=== PATIENT | female | born 1950 | race African-American/Black ===

== ENCOUNTER → 2018-03-28 | Outpatient (CLI) | payer MEDICARE ==
--- NOTE | 2018-03-29 11:08 | SLEEP ---
DATE OF STUDY: 03/28/2018 ATTENDING PHYSICIAN: Dr. Ginette Chowdhury. The patient is 67 years old who weighs 276 pounds with a BMI of 51. The patient's [place] score was 20, suggesting severe subjective hypersomnia. The patient underwent a split night study at [facility]. During the night split study, the patient spent 448 minutes in bed and slept for 421 minutes with a sleep efficiency of 94%. Sleep latency was 2 minutes with a REM latency of 154 minutes. Overall, sleep architecture showed normal stage 1 and stage 2 sleep, increased slow wave and normal REM sleep. During the initial diagnostic portion of the study, the patient slept for 82 minutes. During that time, the patient had 82 obstructive apneas, 4 mixed and no central apneas and 62 hypopneas. The patient's apnea hypopnea index was 113 per hour. The patient did not have any significant supine sleep during diagnostic portion or REM sleep. EKG monitoring revealed normal sinus rhythm, average heart rate of 76 beats per minute, occasional PACs and rare PVCs seen. No sustained arrhythmias observed. Nocturnal oximetry study revealed a mean oxygen saturation of 89% with lowest of 79%. 51% of the time oxygen saturation remained between 80% and 89%. No PLMS observed. The patient met the criteria for CPAP initiation. She was started at 5 cm water and titrated up to 18 cm water. At the final pressure, the patient slept for 46 minutes. The patient had supine sleep throughout and a long REM period was observed. The patient's AHI was reduced to 1 per hour and oxygen saturations remained above 90%. The patient used a large size nasal mask. IMPRESSION: 1. Severe sleep apnea-hypopnea syndrome at an AHI of 113 per hour. 2. Nocturnal hypoxia which was severe, but resolved with CPAP. 3. No clinically significant PLMS. RECOMMENDATIONS: 1. CPAP at 18 cm water completely eliminated the patient's sleep apnea, should be used on a nightly basis. 2. Follow up in 4-6 weeks to assess compliance with CPAP and to document clinical improvement. 3. Weight loss is strongly advised. 4. Avoid [employer] depressants. 5. Caution regarding driving until symptoms of sleep apnea resolve with the use of CPAP. JOSE JONES MD DR: RUTHIE/kenneth JOB#: [id number] / [id number] GINETTE Boles MD
== END | disposition home or self-care (01) ==
LOC: RT 18:19
PROVIDERS: ATTEND Pediatrics
DX: G47.33 Obstructive sleep apnea (adult) (pediatric) (principal); G47.34 Idiopathic sleep related nonobstructive alveolar hypoventilation
CPT/HCPCS: 95810

== ENCOUNTER 2018-04-11 09:30 | Day surgery (SDC) | payer MEDICARE ==
[~2018-04-11 09:30] MED LIST: CIPROFLOXACIN 0.3% OPHTH SOLUTION 5ML BOTTLE. OD ONE; HYDROmorphone 2 MG/ML VIAL IV PRN; IV RINGERS,LACTATED 1000ML 1,000 ML IV SCH; LIDOCAINE 1% PF 2 ML VIAL. ID PRN; LIDOCAINE 2% JELLY 6ML IN APPLICATOR. MM SCH; MORPHINE SULFATE 2 MG/ML VIAL. IV PRN; ONDANSETRON PF 4 MG/2 ML VIAL. IV PRN; PROCHLORPERAZINE 10 MG/2 ML VIAL. IV PRN; PROPARACAINE 0.5% OPHTH SOLUTION 15ML BOTTLE. OD ONE; fentaNYL PF VIAL 100 MCG/2 ML VIAL IV PRN
[2018-04-11] MEDS ORDERED: LOSA100T7 PO (09:49)
[2018-04-11] MEDS ORDERED: [UNRECOGNIZED DRUG - OTHER] (09:52)
[2018-04-11] MEDS ORDERED: APIX5TAB PO (09:52)
[2018-04-11] MEDS ORDERED: IBUP-1060 PO (09:52)
[2018-04-11] MEDS ORDERED: POTA20TA82 PO (09:53)
[2018-04-11] MEDS ORDERED: PROAIR HFA8.5 GM INH (09:54)
[2018-04-11] MEDS ORDERED: PROM118S5 PO (09:54)
[2018-04-11] MEDS ORDERED: BUDE10.2 IH (09:54)
[2018-04-11] MEDS ORDERED: TRAM50TA PO (09:55)
[2018-04-11] MEDS ORDERED: AMLO5TAB7 PO (09:56)
[2018-04-11] MEDS ORDERED: LEVO200T5 PO (09:56)
[2018-04-11] MEDS: CYCLOPENTOLATE 1% OPTH SOLUTION 2ML BOTTLE. OD SCH ×3 (10:27→10:44)
[2018-04-11] MEDS: PHENYLEPHRINE 10% OPHTH SOLUTION 5ML BOTTLE. OD SCH ×3 (10:28→10:45)
[2018-04-11] MEDS ORDERED: LEVIMIR SUBCUT (10:35)
[2018-04-11] MEDS ORDERED: INSU100C4 SQ (10:36)
[2018-04-11] MEDS ORDERED: CHONDROITIN-SOD-HYALURONATE 0.5 ML DISP.SYRIN. ONE (10:43)
[2018-04-11] MEDS ORDERED: NEO/POLYMYX/DEXAMETH OPHTH OINTMENT 3.5GM TUBE. ONE (10:43)
[2018-04-11] MEDS ORDERED: CHONDROIT-SOD-HYALURONATE KIT. ONE (10:43)
[2018-04-11] MEDS ORDERED: BALANCED SALT IRRIG OPHTH SOLN 15 ML BOTTLE. ONE (10:43)
[2018-04-11] MEDS ORDERED: LIDOCAINE 1% PF 2 ML VIAL. ONE (10:43)
[2018-04-11 12:30] VITALS: BP 145/74
--- NOTE | 2018-04-11 13:44 | OP ---
DATE OF SURGERY: 04/11/2018 PREOPERATIVE DIAGNOSIS: Significant nuclear and cortical cataract of the right eye. POSTOPERATIVE DIAGNOSIS: Significant nuclear and cortical cataract of the right eye. PROCEDURE: Phacoemulsification with posterior chamber lens implant, right eye. ANESTHESIA: Local with MAC. DESCRIPTION OF PROCEDURE: The patient's dilating and anesthetic drops were given on the outpatient department and the [place] balloon cuff used for about 15 minutes. The patient was brought to the operating room, positioned on the table and the right eye was prepped and draped in the usual sterile manner for an intraocular procedure. A lid speculum was placed between the eyelids on the right side and the eye was first observed. It was noted that there was a medium dilated pupil. A paracentesis was made in superior temporally and an injection of fentanyl-lidocaine made into the anterior chamber. This was followed by injection of viscoelastic and then the 2.4 mm temporal incision made with a steel blade. A capsulorrhexis was made about the dilated pupillary border and the lens nucleus hydrodissected. The lens nucleus was phacoemulsified with the phaco handpiece and the cortical material then aspirated with the I/A handpiece. Provisc was then used to insufflate the bag and form the anterior chamber and a posterior chamber lens placed into the bag without difficulty. The Provisc was aspirated with the I/A handpiece and the anterior chamber reformed and the wound hydrated. The wound was checked for leaks and there were none. The speculum and drape were removed and Maxitrol ointment instilled in the conjunctival sac and the eye was shielded. The patient was taken to the recovery room in satisfactory condition. There were no complications. I will see the patient tomorrow in my office. K GEORGE WILKINSON MD DR: SHUBHAM/kenneth JOB#: [id number] / [id number]
== END 2018-04-11 13:25 | disposition home or self-care (01) ==
LOC: SURG 09:30
PROVIDERS: ATTEND Ophthalmology
DX: H25.11 Age-related nuclear cataract, right eye (principal); I10 Essential (primary) hypertension; E03.9 Hypothyroidism, unspecified; E11.9 Type 2 diabetes mellitus without complications; Z79.899 Other long term (current) drug therapy; Z88.0 Allergy status to penicillin; Z88.2 Allergy status to sulfonamides; Z79.84 Long term (current) use of oral hypoglycemic drugs; Z98.42 Cataract extraction status, left eye; Z96.1 Presence of intraocular lens
CPT/HCPCS: 66984; 82962; C1780; J0171; A4461

== ENCOUNTER 2018-04-21 10:10 | Day surgery (SDC) | payer MEDICARE ==
[~2018-04-21 10:10] MED LIST changes: +AMLO5TAB7 PO; +APIX5TAB PO; +BUDE10.2 IH; -CIPROFLOXACIN 0.3% OPHTH SOLUTION 5ML BOTTLE. OD ONE; -HYDROmorphone 2 MG/ML VIAL IV PRN; +IBUP-1060 PO; +INSU100C4 SQ; -IV RINGERS,LACTATED 1000ML 1,000 ML IV SCH; +LEVIMIR SUBCUT; +LEVO200T5 PO; -LIDOCAINE 1% PF 2 ML VIAL. ID PRN; -LIDOCAINE 2% JELLY 6ML IN APPLICATOR. MM SCH; +LOSA100T14 PO; -MORPHINE SULFATE 2 MG/ML VIAL. IV PRN; -ONDANSETRON PF 4 MG/2 ML VIAL. IV PRN; +POTA20TA82 PO; +PROAIR HFA8.5 GM INH; -PROCHLORPERAZINE 10 MG/2 ML VIAL. IV PRN; +PROM118S5 PO; -PROPARACAINE 0.5% OPHTH SOLUTION 15ML BOTTLE. OD ONE; +TRAM50TA PO; +[UNRECOGNIZED DRUG - OTHER]; -fentaNYL PF VIAL 100 MCG/2 ML VIAL IV PRN
[2018-04-21] MEDS ORDERED: IV RINGERS,LACTATED 1000ML 1,000 ML IV SCH (11:00)
[2018-04-21] MEDS ORDERED: LIDOCAINE 1% PF 2 ML VIAL. ONE (11:27)
[2018-04-21] MEDS ORDERED: BALANCED SALT IRRIG OPHTH SOLN 15 ML BOTTLE. ONE (11:27)
[2018-04-21] MEDS ORDERED: CHONDROIT-SOD-HYALURONATE KIT. ONE (11:27)
[2018-04-21] MEDS ORDERED: CHONDROITIN-SOD-HYALURONATE 0.5 ML DISP.SYRIN. ONE (11:27)
[2018-04-21] MEDS ORDERED: NEO/POLYMYX/DEXAMETH OPHTH OINTMENT 3.5GM TUBE. ONE (11:27)
[2018-04-21] MEDS: PHENYLEPHRINE 10% OPHTH SOLUTION 5ML BOTTLE. OS SCH ×3 (11:46→11:58)
[2018-04-21] MEDS: CYCLOPENTOLATE 1% OPTH SOLUTION 2ML BOTTLE. OS SCH ×3 (11:46→11:58)
[2018-04-21] MEDS ORDERED: MIDAZOLAM HCL/PF 2 MG/2 ML VIAL. ONE (12:34)
[2018-04-21] MEDS ORDERED: TRYPAN BLUE 0.06% INTRAOCULAR 0.5 ML SYRINGE. OS ONE (13:02)
[2018-04-21 13:25] VITALS: BP 184/87
--- NOTE | 2018-04-21 14:36 | OP ---
DATE OF SURGERY: 04/21/2018 PREOPERATIVE DIAGNOSIS: Significant nuclear and cortical spoking cataract of the left eye. POSTOPERATIVE DIAGNOSIS: Significant nuclear and cortical spoking cataract of the left eye. PROCEDURE: Phacoemulsification with posterior chamber lens implant with use of VisionBlue, left eye. ANESTHESIA: Topical with MAC. DESCRIPTION OF PROCEDURE: The patient's topical and anesthetic drops were applied in the outpatient area and the [place] balloon cuff used for about 10-15 minutes. The patient was then brought to the operating room and positioned on the table and the left eye was prepped and draped in the usual sterile manner for an intraocular procedure. A lid speculum was placed between the eyelids and the operating microscope brought into position. The eye was first observed. There was average pupillary dilation with significant nuclear and cortical changes. I felt capsulorrhexis would be difficult with the cortical changes, so I decided to use VisionBlue. A paracentesis incision was made inferior temporally and Phenylid was injected into the anterior chamber. This was followed by an injection of air in a Viscoat plug and then VisionBlue was infiltrated over the anterior capsule for staining. The air was displaced with Viscoat and the primary 2.4-mm incision was made temporally. A bent needle and forceps were used to make a capsulorrhexis and this was rather easy with the staining. The lens nucleus was hydrodissected and the nucleus then phacoemulsified using the phaco handpiece. The anterior chamber was formed and the bag insufflated with Provisc. A posterior chamber lens placed into the bag without difficulty. The viscoelastic was aspirated with the I/A handpiece and the eye was pressurized. The wound was checked for leaks and there were none. The eye looked good at the end of the case and the speculum and drape were then removed. Maxitrol ointment was instilled in the conjunctival sac and the eye was shielded. The patient was taken to recovery room in satisfactory condition. I will see her in 3 days in my office. I will make phone contact with her tomorrow to make sure she is doing well. K GEORGE WILKINSON MD DR: SHUBHAM/kenneth JOB#: [id number] / [id number]
[2018-04-22] MEDS ORDERED: PROPARACAINE 0.5% OPHTH SOLUTION 15ML BOTTLE. OS ONE (06:00)
[2018-04-22] MEDS ORDERED: LIDOCAINE 2% JELLY 6ML IN APPLICATOR. MM SCH (06:00)
[2018-04-22] MEDS ORDERED: CIPROFLOXACIN 0.3% OPHTH SOLUTION 5ML BOTTLE. OS ONE (06:15)
== END 2018-04-21 14:35 | disposition home or self-care (01) ==
LOC: SURG 10:10
PROVIDERS: ATTEND Ophthalmology
DX: E11.36 Type 2 diabetes mellitus with diabetic cataract (principal); H25.812 Combined forms of age-related cataract, left eye; I10 Essential (primary) hypertension; E03.9 Hypothyroidism, unspecified; Z88.0 Allergy status to penicillin; Z88.2 Allergy status to sulfonamides; Z79.899 Other long term (current) drug therapy; Z98.41 Cataract extraction status, right eye; Z96.1 Presence of intraocular lens; Z79.84 Long term (current) use of oral hypoglycemic drugs
CPT/HCPCS: 66982; 82962; C1780; J0171; J2250; A4461

== ENCOUNTER → 2020-04-28 | Outpatient (CLI) | payer MEDICARE ==
[~2020-04-28] MED LIST changes: +ALBU2.5V8 INH; +AMLO-186 PO; -AMLO5TAB7 PO; +POTA20TA4 PO; -POTA20TA82 PO; -PROAIR HFA8.5 GM INH
--- NOTE | 2020-04-28 16:45 | RAD ---
Bilateral lower extremity arterial Doppler: Reason for examination: Reason for examination: Nonpalpable pedal pulses. The lower extremity arterial systems were evaluated from the common femoral arteries distally to the posterior tibial and dorsalis pedis arteries with grayscale imaging, color-flow imaging and spectral analysis. Examination was compromised by patient's morbid obesity and very large legs. There is limited visualization of the vascular structures due to morbid obesity. The right common femoral artery shows a triphasic waveform. The deep femoral artery shows a biphasic waveform. The proximal right superficial femoral artery shows a triphasic waveform. The right superficial femoral artery was not visualized from the mid to distal segment. The right popliteal artery, posterior tibial artery, peroneal artery and anterior tibial and dorsalis pedis artery appear to show biphasic waveforms. The left common femoral artery shows a triphasic waveform. The deep femoral artery shows a biphasic waveform. The left superficial femoral artery, popliteal artery, posterior tibial artery, peroneal artery, anterior tibial artery and dorsalis pedis arteries show biphasic waveforms. Flow velocities are as follows (in centimeters per second): Right Left Common femoral artery 156 188 Deep femoral artery 149 115 Superficial femoral artery proximal 175 146 Superficial femoral artery mid nonvisualized 130 Superficial femoral artery distal nonvisualized 141 Popliteal artery 103 144 Posterior tibial artery proximal 86 98 Posterior tibial artery distally 180 77 Peroneal artery 99 98 Anterior tibial artery 80 109 Dorsalis pedis artery 83 70 IMPRESSION: Morbid obesity with large legs compromising visualization of vascular structures. The right superficial femoral artery from the mid to distal segment was not visualized but distally, there were biphasic waveforms. This suggests flow without severe stenosis or occlusion but further evaluation with CTA should be considered. Triphasic or biphasic waveforms throughout the left lower extremity without apparent occlusion. Electronically signed by: Mary Evans MD (04/28/2020 4:42 PM) [facility]
== END ==
LOC: US 14:55
PROVIDERS: ATTEND Podiatrist
DX: R09.89 Other specified symptoms and signs involving the circulatory and respiratory systems (principal)
CPT/HCPCS: 93925